=== PATIENT | male | born 1955 | race Caucasian/White ===

== ENCOUNTER 2017-05-09 10:43 | Emergency (ER) | payer OTHER ==
--- NOTE | ~2017-05-09 | ER ---
[facility] AGE: 61 Y [address] ROOM: [place] [id number] LOCATION: [facility] ADMIT DATE: 05/09/2017 ER/Outpatient Report DISCHARGE DATE: 05/09/2017 FAMILY PHYSICIAN: Vignesh Barrientos MD ATTENDING PHYSICIAN: Vishal Valdes Time of Arrival: 1043 hours. Time of Evaluation: 1045 hours. CHIEF COMPLAINT: Fall. HISTORY OF PRESENT ILLNESS: The patient is a 61-year-old male who presents to the emergency department today with a chief complaint of fall. He was a ground level fall. He was in Dr. Miller's office. The patient underwent a knee surgery a week ago. He apparently was in the bathroom, trying to get up, lost his balance, and fell and hit his head. There was no loss of consciousness. He denies any pain, currently is 0/10 in severity. Denies any headache. No fevers or chills. No nausea or vomiting. No diarrhea or constipation. He does report he has had blurred vision, but this has been a chronic issue. He had had surgery on his eyes as well. PAST MEDICAL HISTORY: Blurry vision. PAST SURGICAL HISTORY: 1. Right total knee one week ago. 2. Eye surgery. SOCIAL HISTORY: The patient denies any tobacco, alcohol, or illicit drug use. ALLERGIES: NO KNOWN DRUG ALLERGIES. MEDICATIONS: Please see list. REVIEW OF SYSTEMS: All systems are reviewed by myself and are negative with the exception of those discussed in the HPI and past medical history. PHYSICAL EXAMINATION: VITAL SIGNS: Weight 116 kg. Blood pressure 149/79, pulse 57, respiratory PATIENT'S NAME: DENAE PADILLA [facility] AGE: 61 Y [address] ROOM: [place] [id number] LOCATION: [facility] ADMIT DATE: 05/09/2017 ER/Outpatient Report DISCHARGE DATE: 05/09/2017 FAMILY PHYSICIAN: Vignesh Barrientos MD ATTENDING PHYSICIAN: Vishal Valdes rate 20, temperature 97.1, and oxygen saturation 96% on room air. GENERAL: The patient is a 61-year-old male, who appears stated age, in no acute distress at this time. HEENT: Head; normocephalic and atraumatic. Pupils are equal, round, and reactive to light. His left eye does have some exotropia noted. Oropharynx is clear. NECK: Supple. There is no nuchal rigidity. CARDIOVASCULAR: Regular rate and rhythm. No murmurs, rubs, or gallops. LUNGS: Clear to auscultation bilaterally. No wheezes, rales, or rhonchi. ABDOMEN: Soft, nontender, and nondistended. No rebound, rigidity, or guarding. MUSCULOSKELETAL: The patient moves all 4 extremities. He walks with an antalgic gait. Does have a cane due to the total right knee. SKIN: Warm and dry. Incisions are clean, dry, and intact. LABORATORY DATA AND IMAGING STUDIES: Labs and X-rays: CT scan of the brain and C-spine are obtained. I have discussed the results with the radiologist. The brain is negative for any acute hemorrhage. C-spine shows no acute fracture. There are extensive degenerative changes noted. IMPRESSION: 1. Ground-level fall. 2. Initial visit. EMERGENCY DEPARTMENT COURSE: The patient was brought back to the examination room. Seen and evaluated by myself. CT imaging is obtained as described above. It is unremarkable. The patient feels his normal self at this time. He does report that the blurry vision is chronic, and he has had it for quite some time. He has had eye surgeries as well. I have discussed the results with the patient. I have recommend a close followup with primary care doctor in 2 to 3 days for re- evaluation. I have discussed return to care instructions including nausea, vomiting, headache, or any other concerns to return to the emergency department as soon as possible. The patient will proceed for his evaluation by Dr. Miller for his knee. DISPOSITION: The patient was discharged to home in good condition. VISHAL VALDES DO PATIENT'S NAME: DENAE PADILLA [facility] AGE: 61 Y [address] ROOM: [place] [id number] LOCATION: [facility] ADMIT DATE: 05/09/2017 ER/Outpatient Report DISCHARGE DATE: 05/09/2017 FAMILY PHYSICIAN: Vignesh Barrientos MD ATTENDING PHYSICIAN: Vishal Valdes/clevel /[id number] d: 05/09/17 1903 t: 05/10/17 0750, OUTPATIENT REPORT
== END 2017-05-09 11:55 | disposition disaster alternative care site (69) ==
LOC: GACC 10:43
DX: Z04.3 Encounter for examination and observation following other accident (principal); H53.8 Other visual disturbances; Z98.890 Other specified postprocedural states; Z79.82 Long term (current) use of aspirin; Z79.891 Long term (current) use of opiate analgesic; Z79.899 Other long term (current) drug therapy; W18.39XA Other fall on same level, initial encounter; Y92.002 Bathroom of unspecified non-institutional (private) residence as the place of occurrence of the external cause

== ENCOUNTER → 2017-05-09 | Emergency (ER) | payer OTHER | END | disposition disaster alternative care site (69) | LOC: GAMB 10:28 | DX: Z74.09 Other reduced mobility (principal); Z96.651 Presence of right artificial knee joint; Z79.82 Long term (current) use of aspirin ==